=== PATIENT | male | born 1980 | race Caucasian/White ===

== ENCOUNTER 2017-06-07 04:28 | Emergency (ER) | payer BC ==
[2017-06-07] MEDS ORDERED: IBUPROFEN 600 MG TAB PO STA (05:33)
--- NOTE | 2017-06-07 05:46 | ED ---
Fever HPI - General Source: patient Mode of arrival: ambulatory Limitations: no limitations - History of Present Illness MD Complaint: fever -: hour(s) Temperature Source: other Context: sick contacts Associated Symptoms: chills, cough Treatments Prior to Arrival: Acetaminophen <Chad Villegas - Last Filed: 06/07/17 06:46> <Patel Cantor - Last Filed: 06/07/17 07:32> - General Chief Complaint: Fever Stated Complaint: fever Time Seen by Provider: 06/07/17 04:36 - History of Present Illness Initial Comments: This patient is a 36-year-old man who presents to be evaluated for fever and the patient states that he woke up tonight feeling chills. He tried taking a hot shower and so was feeling cold rate he injects temperature and it was 105. Patient does acknowledge having about 2 days of nonproductive cough and a little bit of postnasal drip. Patient denying other symptoms of infection, see the review of systems. He did take some Tylenol, and when he rechecked his temperature was 102. (Chad Villegas) - Related Data Home Medications Medication Instructions Recorded Confirmed Acetaminophen [Tylenol Extra 1,000 mg PO BID PRN 06/07/17 06/07/17 Strength] Previous Rx's Medication Instructions Recorded Azithromycin [Zithromax Z-pack] 250 mg PO DIRECTED #6 tab 06/07/17 Allergies Allergy/AdvReac Type Severity Reaction Status Date / Time No Known Allergies Allergy Verified 06/07/17 07:08 Review of Systems ROS Other: All systems not noted in ROS Statement are negative. Constitutional: Reports: fever, chills. Denies: weakness ENT: Reports: congestion. Denies: ear pain Respiratory: Reports: cough. Denies: dyspnea, wheezes Cardiovascular: Denies: chest pain, syncope Gastrointestinal: Denies: abdominal pain, vomiting, diarrhea Genitourinary: Denies: dysuria, hematuria Skin: Denies: rash Neurological: Denies: headache, weakness, numbness <Chad Villegas - Last Filed: 06/07/17 06:46> ROS Other: All systems not noted in ROS Statement are negative. <Patel Cantor - Last Filed: 06/07/17 07:32> ROS Statement: Those systems with pertinent positive or pertinent negative responses have been documented in the HPI. Past Medical History Past Medical History: No Reported History History of Any Multi-Drug Resistant Organisms: None Reported Past Surgical History: No Surgical Hx Reported Past Psychological History: No Psychological Hx Reported Smoking Status: Current every day smoker Past Alcohol Use History: None Reported Past Drug Use History: None Reported <NellyChad - Last Filed: 06/07/17 06:46> General Exam Limitations: no limitations General appearance: alert, in no apparent distress Head exam: Present: atraumatic, normocephalic Eye exam: Present: normal appearance. Absent: scleral icterus, conjunctival injection ENT exam: Present: normal oropharynx, mucous membranes moist Neck exam: Present: normal inspection, full ROM. Absent: lymphadenopathy Respiratory exam: Present: normal lung sounds bilaterally. Absent: respiratory distress, wheezes, rales, rhonchi Cardiovascular Exam: Present: regular rate, normal rhythm, normal heart sounds. Absent: systolic murmur, diastolic murmur, rubs, gallop GI/Abdominal exam: Present: soft. Absent: distended, tenderness, guarding, rebound, rigid, mass Extremities exam: Present: normal inspection, normal capillary refill. Absent: pedal edema, calf tenderness Neurological exam: Present: alert Psychiatric exam: Present: normal affect Skin exam: Present: warm, normal color, cyanosis, diaphoretic, erythema. Absent : intact, rash <Chad Villegas - Last Filed: 06/07/17 06:46> Medical Decision Making <Chad Villegas - Last Filed: 06/07/17 06:46> - Radiology Data Radiology results: image reviewed (X-ray does show right middle lobe infiltrate) <Patel Cantor - Last Filed: 06/07/17 07:32> - Medical Decision Making Patient reexamined by myself, Dr. Cantor. Patient resting comfortably in bed. Patient denies dyspnea. Patient states symptoms just started the past day or so. Patient does state he has had a mild cough. Patient feels good at this time and is comfortable with discharge home. Patient updated on results and need for follow-up. (Patel Cantor) - Lab Data Lab Results 06/07/17 Range/Units 05:40 Urine Color Colorless Urine Appearance Clear (Clear) Urine pH 6.0 (5.0-8.0) Ur Specific [place] 1.002 (1.001-1.035) Urine Protein Negative (Negative) Urine Glucose (UA) Negative (Negative) Urine Ketones Negative (Negative) Urine Blood Negative (Negative) Urine Nitrite Negative (Negative) Urine Bilirubin Negative (Negative) Urine Urobilinogen <2.0 (<2.0) mg/dL Ur Leukocyte Esterase Negative (Negative) Disposition <Chad Villegas - Last Filed: 06/07/17 06:46> Time of Disposition: 07:31 <Patel Cantor - Last Filed: 06/07/17 07:32> Clinical Impression: Right middle lobe pneumonia Disposition: HOME SELF-CARE Condition: Stable Instructions: Fever in Adults (ED), Community Acquired Pneumonia (ED) Additional Instructions: Please follow-up with primary care physician in the next couple days for recheck. Return for difficulty in breathing, uncontrolled fevers, worsening symptoms or other concerns. [id number] Tylenol or Motrin as needed for fever. Prescriptions: Azithromycin [Zithromax Z-pack] 250 mg PO DIRECTED #6 tab Referrals: Adrián Butler MD [STAFF PHYSICIAN] - 1-2 days Emelia Farfan DO [REFERRING] - 1-2 days
[2017-06-07 05:50] LABS: Appearance,Urine Clear (Clear); Bilirubin,Urine Negative (Negative); Glucose,Urine (UA) Negative (Negative); Ketones,Urine Negative (Negative); Leukocyte Esterase,Urine Negative (Negative); Nitrite,Urine Negative (Negative); Protein,Urine Negative (Negative); Specific Gravity,Urine 1.002 (1.001-1.035); UA Billing (MACRO vs. MICRO) CHEM; Urobilinogen,Urine <2.0 mg/dL (<2.0)
[2017-06-07 06:39] VITALS: RESP 16
--- NOTE | 2017-06-07 07:13 | XR ---
INDICATION: Chest pain COMPARISON: None. FINDINGS: PA and lateral views of the chest are obtained. The cardiomediastinal silhouette is within normal limits. There is airspace opacity in the right middle lobe concerning for pneumonia. No pleural effusion or pneumothorax. Bony elements are within normal limits. IMPRESSION: Right middle lobe pneumonia.
[2017-06-07] MEDS ORDERED: AZITHROMYCIN 500 MG TAB PO STA (07:31)
[2017-06-07 07:59] VITALS: BP 115/70; PULSE 87; TEMP 97.9
== END 2017-06-07 08:05 | disposition home or self-care (01) ==
LOC: EC 04:28
DX: J18.9 Pneumonia, unspecified organism (principal); F17.200 Nicotine dependence, unspecified, uncomplicated
CPT/HCPCS: 71020; 81003; 99283

== ENCOUNTER 2017-06-09 21:26 | Emergency (ER) | payer BC, OTHER ==
[2017-06-09] MEDS ORDERED: KETOROLAC 30 MG/ML 1 ML VIAL IM STA (22:01)
--- NOTE | 2017-06-09 22:04 | ED ---
Lower Extremity Injury HPI - General Chief Complaint: Extremity Injury, Lower Stated Complaint: ankle injury Source: patient Mode of arrival: ambulatory Limitations: no limitations - History of Present Illness Initial Comments: Patient is a 36-year-old male who presents for evaluation for right ankle/foot pain and swelling. Past medical history as below. Patient stated that he was helping a friend move today. He jumped out of the truck and landed on his right foot with a half on the curb and half on the street. He stated that it twisted inward. Was able to ambulate on it though he states that the pain was quite significant. Noticed some swelling to the right lateral aspect of his foot so decided to come in for evaluation. Patient was recently seen here and diagnosed with right middle lobe pneumonia. He started antibiotics yesterday which she's been compliant with. He states that he actually feels much improved. Denies any fevers at home. No shortness of breath or cough. Also denies URI symptoms, chest pain, nausea, vomiting, diarrhea, pain or burning with urination. Patient specifically stated that he would not have come in if it wasn't for the swelling to his right foot. He states that the antibiotics are helping him and he feels much improved from the fourth. - Related Data Home Medications Medication Instructions Recorded Confirmed Azithromycin [Zithromax Z-pack] See Taper PO DAILY 06/09/17 06/09/17 Allergies Allergy/AdvReac Type Severity Reaction Status Date / Time No Known Allergies Allergy Verified 06/09/17 21:30 Review of Systems ROS Statement: Those systems with pertinent positive or pertinent negative responses have been documented in the HPI. ROS Other: All systems not noted in ROS Statement are negative. Past Medical History Past Medical History: No Reported History History of Any Multi-Drug Resistant Organisms: None Reported Past Surgical History: No Surgical Hx Reported Past Psychological History: No Psychological Hx Reported Smoking Status: Current every day smoker Past Alcohol Use History: None Reported Past Drug Use History: None Reported General Exam Limitations: no limitations General appearance: alert, in no apparent distress, other (Nontoxic appearing) Head exam: Present: atraumatic, normocephalic, normal inspection Eye exam: Present: normal appearance, PERRL, EOMI. Absent: scleral icterus, conjunctival injection, periorbital swelling ENT exam: Present: normal exam, mucous membranes moist Neck exam: Present: normal inspection. Absent: tenderness, meningismus, lymphadenopathy Respiratory exam: Present: normal lung sounds bilaterally, other (Clear bilaterally without wheezes rales or rhonchi. No hypoxia. Respiratory rate 20. No conversational dyspnea.). Absent: respiratory distress, wheezes, rales , rhonchi, stridor Cardiovascular Exam: Present: regular rate, normal rhythm, normal heart sounds. Absent: systolic murmur, diastolic murmur, rubs, gallop, clicks GI/Abdominal exam: Present: soft, normal bowel sounds. Absent: distended, tenderness, guarding, rebound, rigid Extremities exam: Present: normal inspection, full ROM, normal capillary refill , other (Soft tissue swelling to the lateral aspect of his right foot/right ankle. No pain with palpation of the posterior distal fibula or tibia. Pain with palpation of the fifth metatarsal. Distal pulses are intact. Sensation intact.). Absent: tenderness, pedal edema, joint swelling, calf tenderness Back exam: Present: normal inspection Neurological exam: Present: alert, oriented X3, CN II-XII intact Psychiatric exam: Present: normal affect, normal mood Skin exam: Present: warm, dry, intact, normal color. Absent: rash Course Vital Signs 06/09/17 06/09/17 21:27 23:48 Temperature 100.8 F H 98 F Pulse Rate 77 69 Respiratory 20 16 Rate Blood Pressure 128/78 156/67 O2 Sat by Pulse 98 99 Oximetry Procedures - Orthopedic Splinting/Casting Injury #1 Side: right Upper Extremity Immobilizer: posterior splint Lower Extremity Injury Location: ankle Lower Extremity Immobilizer: stirrup splint Additional Comments: Neurovascularly intact before and after the procedure. Medical Decision Making - Medical Decision Making Patient is a 36-year-old male who presents for evaluation for right ankle pain and swelling. Twisted it while jumping out of a truck today. Did not take any Tylenol or Motrin at home for it. We'll order plain films of the right foot and ankle. Noted to have a temperature of 100.8. I repeated the temperature myself and it was 100.9. He states that he feels well. Does not have any shortness of breath or cough. Believes that the antibiotics are helping and he would not have come in if it were not for his right ankle pain and swelling. Gave the patient option of further workup but states that he just wants to be evaluated for his right ankle. We'll order 30 mg IM Toradol and plain films. 2335: Reviewed plain films. No acute fracture or dislocation per radiology. Discussed with the patient. Had significant pain with ambulation. At this time recommended splinting and follow-up with orthopedics. Patient agreed. Placed in a posterior mold with stirrup. Neurovascularly intact before and after splinting. We'll make the patient nonweightbearing until reevaluated by orthopedics. He does not have an orthopedic surgeon. Provided Dr. Ku per call schedule to follow-up. Elevate the right lower extremity. Tylenol and Motrin as needed for pain. We'll purchase crutches. Was also noted that the patient had a mild fever on evaluation. Patient is currently being treated for pneumonia. He cites significant symptomatic improvement. He's been on antiemetics for less than 48 hours. Since he is improved did not seek further workup. He has follow-up this week. Provided a work note as the patient is frequently on his feet. Discussed specific signs and symptoms on when to return to the emergency department for further evaluation. Comfortable with discharge home and will follow-up this week with both his primary care physician and orthopedics. Disposition Clinical Impression: Right ankle injury, Pneumonia Disposition: HOME SELF-CARE Condition: Good Instructions: Ankle Sprain (ED) Additional Instructions: Non-weight bearing right lower extremity until cleared by orthopedics Referrals: None,Stated [Primary Care Provider] - 1-2 days Cal Ku MD [STAFF PHYSICIAN] - 1-2 days
--- NOTE | 2017-06-09 23:05 | XR ---
EXAM: XR Right Ankle Complete, 3 or More Views CLINICAL HISTORY: Reason: Pain TECHNIQUE: Frontal, lateral and oblique views of the right ankle. COMPARISON: No relevant prior studies available. FINDINGS: Bones/joints: Unremarkable. No acute fracture. No dislocation. Soft tissues: Unremarkable. IMPRESSION: Normal right ankle x-rays.
--- NOTE | 2017-06-09 23:06 | XR ---
EXAM: XR Right Foot Complete, 3 or More Views CLINICAL HISTORY: Reason: Pain TECHNIQUE: Frontal, lateral and oblique views of the right foot. COMPARISON: No relevant prior studies available. FINDINGS: Bones/joints: Unremarkable. No acute fracture. No dislocation. Soft tissues: Unremarkable. No radiopaque foreign body. IMPRESSION: Normal right foot x-rays.
[2017-06-09 23:49] VITALS: BP 156/67; PULSE 69; RESP 16; TEMP 98
== END 2017-06-09 23:48 | disposition home or self-care (01) ==
LOC: EC 21:26
DX: S99.911A Unspecified injury of right ankle, initial encounter (principal); J18.9 Pneumonia, unspecified organism; F17.200 Nicotine dependence, unspecified, uncomplicated; X50.1XXA Overexertion from prolonged static or awkward postures, initial encounter; Y93.39 Activity, other involving climbing, rappelling and jumping off; Y92.89 Other specified places as the place of occurrence of the external cause
CPT/HCPCS: 73610; 73630; 99283; 29515; 96372; J1885

== ENCOUNTER → 2017-08-20 | Outpatient (CLI) | payer OTHER ==
--- NOTE | 2017-08-20 11:01 | XR ---
EXAMINATION TYPE: XR hand complete RT DATE OF EXAM: 08/20/2017 CLINICAL HISTORY: Right hand injury TECHNIQUE: Frontal, lateral and oblique images of the right hand are obtained. COMPARISON: None. FINDINGS: There are comminuted nondisplaced fractures of the distal travis of the third and fourth dis kash phalanges with overlying soft tissue swelling and volar laceration of the third digit digit near the middle. No radiopaque foreign body is appreciated. No additional fractures are present. IMPRESSION: Comminuted, nondisplaced, nonintra-articular fractures of the distal travis of the third a nd fourth phalanges with no radiopaque foreign body associated soft tissue swelling.
== END | disposition home or self-care (01) ==
LOC: RADXRMAIN 10:39
PROVIDERS: ATTEND Emergency Medicine
DX: S62.662A Nondisplaced fracture of distal phalanx of right middle finger, initial encounter for closed fracture (principal); S62.664A Nondisplaced fracture of distal phalanx of right ring finger, initial encounter for closed fracture

== ENCOUNTER 2017-08-21 04:58 | Emergency (ER) | payer OTHER ==
[2017-08-21] MEDS ORDERED: MORPHINE SULFATE 10 MG/ML SYRINGE IM STA (05:33)
[2017-08-21] MEDS ORDERED: ONDANSETRON ODT 4 MG TAB PO STA (05:33)
[2017-08-21] MEDS ORDERED: ACETAMINOPHEN TAB 500 MG TAB PO STA (05:34)
--- NOTE | 2017-08-21 06:07 | XR ---
EXAM: XR Right Hand Complete, 3 or More Views CLINICAL HISTORY: Reason: Pain TECHNIQUE: Frontal, lateral and oblique views of the right hand. COMPARISON: Right hand radiographs 08/20/2017 FINDINGS: Bones/joints: Comminuted fracture involves terminal tuft of third distal phalanx. There is also comminuted fracture involving the shaft and terminal tuft of fourth distal phalanx. Fracture fragments are in near anatomic alignment without any significant displacement. Soft tissues: No radiopaque foreign bodies identified. Other findings: No significant change since prior examination of 08/20/2017. IMPRESSION: Comminuted fractures involving third and fourth distal phalanges, unchanged since 08/20/2017.
--- NOTE | 2017-08-21 06:50 | ED ---
Upper Extremity HPI - General Chief Complaint: Extremity Injury, Upper Stated Complaint: right hand pain-revisit Time Seen by Provider: 08/21/17 05:16 Source: patient Mode of arrival: ambulatory Limitations: no limitations - History of Present Illness Initial Comments: 6 years old male hurt his right hand at work yesterday, injury happened around 8 :30 in the morning at work his hand got caught between a steel plates. He denies any other injury. He did go to a urgent care for walk-in clinic today. His laceration and gave him some Motrin he saying that monitoring his Motrin is not helping him at this point in the also given pain no murmurs she points to protect his distal phalanx review of system is otherwise unremarkable - Related Data Home Medications Medication Instructions Recorded Confirmed Azithromycin [Zithromax Z-pack] See Taper PO DAILY 06/09/17 06/09/17 Previous Rx's Medication Instructions Recorded Acetaminophen-Codeine 300-30mg 2 tab PO Q6H PRN #21 tablet 08/21/17 [Tylenol #3] Allergies Allergy/AdvReac Type Severity Reaction Status Date / Time No Known Allergies Allergy Verified 08/21/17 05:11 Review of Systems ROS Statement: Those systems with pertinent positive or pertinent negative responses have been documented in the HPI. ROS Other: All systems not noted in ROS Statement are negative. Past Medical History Past Medical History: No Reported History History of Any Multi-Drug Resistant Organisms: None Reported Past Surgical History: No Surgical Hx Reported Past Psychological History: No Psychological Hx Reported Smoking Status: Former smoker Past Alcohol Use History: None Reported Past Drug Use History: None Reported General Exam - General Exam Comments Initial Comments: General: The patient is awake and alert, in mild distress because of the pain Skin: Skin is warm and dry and no rashes or lesions are noted. ENT laceration repaired at a walk-in clinic now he has a dressing on it Eye: Pupils are equal, round and reactive to light, extra-ocular movements are intact; there is normal conjunctiva bilaterally. Ears, nose, mouth and throat: There are moist mucous membranes and no oral lesions. Neck: The neck is supple, there is no tenderness or JVD. Cardiovascular: There is a regular rate and rhythm. No murmur, rub or gallop is appreciated. Respiratory: To auscultation bilateral, no wheezing no rhonchi no distress respiratory newman noticed Gastrointestinal: Soft, non-distended, non-tender abdomen without masses or organomegaly noted. There is no rebound or guarding present. Bowel sounds are unremarkable. Back: There is no tenderness to palpation in the midline. There is no obvious deformity. Musculoskeletal: Normal ROM, no tenderness, There is no pedal edema. There is no calf tenderness or swelling. No cords were appreciated. Neurological: CN II-XII intact, Cranial nerves III through XII are intact. There are no obvious motor or sensory deficits. Coordination appears grossly intact. Speech is normal. Psychiatric: Cooperative, appropriate mood & affect, normal judgment. Limitations: no limitations Course Vital Signs 08/21/17 05:06 Temperature 97.4 F L Pulse Rate 68 Respiratory 16 Rate Blood Pressure 133/84 O2 Sat by Pulse 98 Oximetry Report reviewed, noticed comminuted fracture of the distal phalanx of the fingers, he be referred to Dr. Blanco, over applied aluminum splint to protect the distal phalanx Disposition Clinical Impression: Finger fracture, right Disposition: HOME SELF-CARE Condition: Good Instructions: Hand Fracture (ED) Prescriptions: Acetaminophen-Codeine 300-30mg [Tylenol #3] 2 tab PO Q6H PRN #21 tablet PRN Reason: Pain Referrals: None,Stated [Primary Care Provider] - 1-2 days Brian Blanco DO [Doctor of Osteopathic Medicine] - 1-2 days
[2017-08-21 07:00] VITALS: BP 127/75; PULSE 63; RESP 18; TEMP 98
== END 2017-08-21 06:58 | disposition home or self-care (01) ==
LOC: EC 04:58
DX: S62.632D Displaced fracture of distal phalanx of right middle finger, subsequent encounter for fracture with routine healing (principal); S62.634D Displaced fracture of distal phalanx of right ring finger, subsequent encounter for fracture with routine healing; Z87.891 Personal history of nicotine dependence; W23.0XXD Caught, crushed, jammed, or pinched between moving objects, subsequent encounter; Y92.69 Other specified industrial and construction area as the place of occurrence of the external cause
CPT/HCPCS: 99283 ×2; 96372 ×2; 73130; J2270

== ENCOUNTER 2017-09-09 08:53 | Observation (INO) | payer BC, OTHER ==
[2017-09-09] MEDS ORDERED: RX INFO: IV CONTRAST WAS GIVEN 1 EACH MISC MISCELLANE PRN (10:09)
[2017-09-09] MEDS ORDERED: IOHEXOL 350 MG/ML 25 ML BOTTLE (ORAL USE) PO PRN (10:09)
[2017-09-09] MEDS ORDERED: ONDANSETRON 4 MG/2 ML VIAL IVP STA (10:09)
[2017-09-09] MEDS ORDERED: PIPERACILLIN-TAZOBACTAM 3.375 GM in DEXTROSE/WATER 1 50ML.BAG IVPB STA (10:09)
[2017-09-09] MEDS ORDERED: MORPHINE SULFATE 2 MG/ML SYRINGE IVP STA (10:09)
[2017-09-09 10:54] LABS: Basophils # (A) 0.1 k/uL (0-0.2); Basophils % (A) 1 %; CHCM 33.5; Eosinophils # (A) 0.2 k/uL (0-0.7); Eosinophils % (A) 1 %; HDW 2.17; HGB 17.1 gm/dL (13.0-17.5); Luc # (Auto) 0.14; Luc % (Auto) 1; Lymphocytes # (A) 1.1 k/uL (1.0-4.8); Lymphocytes % (A) 6 %; MCH 30.2 pg (25.0-35.0); MCHC 33.6 g/dL (31.0-37.0); MCV 90.1 fL (80.0-100.0); Mean Platelet Volume 7.1; Monocytes % (A) 5 %; Neutrophils # (A) 16.8 k/uL (1.3-7.7); Neutrophils % (A) 87 %; RBC 5.66 m/uL (4.30-5.90); RDW 13.4 % (11.5-15.5); WBC 19.4 k/uL (3.8-10.6); WBC (Perox) 19.51
[2017-09-09 11:06] LABS: INR 1.1 (<1.2); Partial Thromboplastin Time 27.3 sec (22.0-30.0); Prothrombin Time 10.9 sec (9.0-12.0)
[2017-09-09 11:15] LABS: ALT 23 U/L (21-72); AST 19 U/L (17-59); Alkaline Phosphatase 84 U/L (38-126); Amylase 33 U/L (30-110); Anion Gap 9 mmol/L; Blood Urea Nitrogen 8 mg/dL (9-20); Calcium 9.7 mg/dL (8.4-10.2); Carbon Dioxide 27 mmol/L (22-30); Chloride 103 mmol/L (98-107); Glucose 122 mg/dL (74-99); Non-African American GFR(MDRD) >60 (>60 ml/min/1.73 sqM); Potassium 4.4 mmol/L (3.5-5.1); Sodium 139 mmol/L (137-145); Total Bilirubin 0.9 mg/dL (0.2-1.3); Total Protein 7.6 g/dL (6.3-8.2)
[2017-09-09 12:20] LABS: Appearance,Urine Clear (Clear); Bilirubin,Urine Negative (Negative); Glucose,Urine (UA) Negative (Negative); Ketones,Urine Negative (Negative); Leukocyte Esterase,Urine Negative (Negative); Nitrite,Urine Negative (Negative); PH, Urine 6.5 (5.0-8.0); Protein,Urine Negative (Negative); Specific Gravity,Urine 1.001 (1.001-1.035); UA Billing (MACRO vs. MICRO) CHEM; Urobilinogen,Urine <2.0 mg/dL (<2.0)
--- NOTE | 2017-09-09 12:26 | CT ---
EXAMINATION TYPE: CT abdomen pelvis w con DATE OF EXAM: 09/09/2017 COMPARISON: NONE HISTORY: Right lower quadrant pain CT DLP: 1064 mGycm Automated exposure control for dose reduction was used. TECHNIQUE: Helical acquisition of images from the lung bases through the pelvis have been completed. CONTRAST: Performed with Oral Contrast and with IV Contrast, patient injected with 100 mL of Omnipaque 300. FINDINGS: LUNG BASES: No significant abnormality is appreciated. AORTA: No significant abnormality is appreciated. LIVER/GB: No significant abnormality is appreciated. PANCREAS: No significant abnormality is seen. SPLEEN: No significant abnormality is seen. ADRENALS: No significant abnormality is seen. KIDNEYS: No significant abnormality is seen. REPRODUCTIVE ORGANS: No significant abnormality is seen BOWEL: Some small bowel folds appear somewhat thickened. Right lower quadrant shows a distended appe ndix with fluid present bilaterally as well as some surrounding inflammatory change. No evident absce ss. FREE AIR: No Free Air visible. ASCITES: None visible. PELVIC ADENOPATHY: None visualized. RETROPERITONEAL ADENOPATHY: No Retroperitoneal Adenopathy visible. URINARY BLADDER: No significant abnormality is seen. OSSEOUS STRUCTURES: No significant abnormality is seen. IMPRESSION: FINDINGS COMPATIBLE WITH APPENDICITIS.
[2017-09-09] MEDS ORDERED: ACETAMINOPHEN TAB 500 MG TAB PO STA (12:50)
[2017-09-09] MEDS ORDERED: NALOXONE 0.4 MG/ML 1 ML VIAL IV PRN ×2 (13:03→15:31)
[2017-09-09] MEDS ORDERED: ONDANSETRON 4 MG/2 ML VIAL IVP PRN (13:03)
--- NOTE | 2017-09-09 13:03 | ED ---
Abdominal Pain HPI - General Chief Complaint: Abdominal Pain Stated Complaint: ABDOMINAL PAIN Time Seen by Provider: 09/09/17 10:07 Source: patient Mode of arrival: ambulatory Limitations: no limitations - History of Present Illness Initial Comments: Patient complains of abdominal pain. It has been there for 3 days. The pain is getting worse. Patient was unable to eat today. Pain is in the right lower quadrant. It does not radiate anywhere. It is worse when he is up walking around. He has taken no medication this. He has nausea but no vomiting. He has no chest pain or back pain. He has no headache. He denies any injuries. He has no weakness or trouble walking. - Related Data Home Medications Medication Instructions Recorded Confirmed No Known Home Medications [No 09/09/17 09/09/17 Known Home Medications] Allergies Allergy/AdvReac Type Severity Reaction Status Date / Time No Known Allergies Allergy Verified 09/09/17 09:42 Review of Systems ROS Statement: Those systems with pertinent positive or pertinent negative responses have been documented in the HPI. ROS Other: All systems not noted in ROS Statement are negative. Past Medical History Past Medical History: No Reported History History of Any Multi-Drug Resistant Organisms: None Reported Past Surgical History: No Surgical Hx Reported Past Psychological History: No Psychological Hx Reported Smoking Status: Former smoker Past Alcohol Use History: None Reported Past Drug Use History: None Reported General Exam Limitations: no limitations General appearance: alert, in no apparent distress Head exam: Present: atraumatic, normocephalic, normal inspection Eye exam: Present: normal appearance, PERRL, EOMI. Absent: scleral icterus, conjunctival injection, periorbital swelling ENT exam: Present: normal exam, mucous membranes moist Neck exam: Present: normal inspection. Absent: tenderness, meningismus, lymphadenopathy Respiratory exam: Present: normal lung sounds bilaterally. Absent: respiratory distress, wheezes, rales, rhonchi, stridor Cardiovascular Exam: Present: regular rate, normal rhythm, normal heart sounds. Absent: systolic murmur, diastolic murmur, rubs, gallop, clicks GI/Abdominal exam: Present: soft, tenderness, normal bowel sounds. Absent: distended, guarding, rebound, rigid Extremities exam: Present: normal inspection, full ROM, normal capillary refill. Absent: tenderness, pedal edema, joint swelling, calf tenderness Back exam: Present: normal inspection Neurological exam: Present: alert, oriented X3, CN II-XII intact Psychiatric exam: Present: normal affect, normal mood Skin exam: Present: warm, dry, intact, normal color. Absent: rash Course Vital Signs 09/09/17 09/09/17 09:28 12:43 Temperature 99.3 F 101.8 F H Pulse Rate 85 75 Respiratory 16 18 Rate Blood Pressure 125/67 125/67 O2 Sat by Pulse 98 97 Oximetry Medical Decision Making - Medical Decision Making Patient presents with abdominal pain. He has right lower quadrant tenderness. I made him nothing by mouth. CT reveals appendicitis. I ordered IV Zosyn. Patient will be admitted to surgery. - Lab Data Result diagrams: 09/09/17 10:40 09/09/17 10:40 Lab Results 09/09/17 09/09/17 09/09/17 Range/Units 10:40 10:40 10:40 WBC 19.4 H (3.8-10.6) k/uL RBC 5.66 (4.30-5.90) m/uL Hgb 17.1 (13.0-17.5) gm/dL Hct 51.0 (39.0-53.0) % MCV 90.1 (80.0-100.0) fL MCH 30.2 (25.0-35.0) pg MCHC 33.6 (31.0-37.0) g/dL RDW 13.4 (11.5-15.5) % Plt Count 301 (150-450) k/uL Neutrophils % 87 % Lymphocytes % 6 % Monocytes % 5 % Eosinophils % 1 % Basophils % 1 % Neutrophils # 16.8 H (1.3-7.7) k/uL Lymphocytes # 1.1 (1.0-4.8) k/uL Monocytes # 1.0 (0-1.0) k/uL Eosinophils # 0.2 (0-0.7) k/uL Basophils # 0.1 (0-0.2) k/uL PT 10.9 (9.0-12.0) sec INR 1.1 (<1.2) APTT 27.3 (22.0-30.0) sec Sodium 139 (137-145) mmol/L Potassium 4.4 (3.5-5.1) mmol/L Chloride 103 (98-107) mmol/L Carbon Dioxide 27 (22-30) mmol/L Anion Gap 9 mmol/L BUN 8 L (9-20) mg/dL Creatinine 0.89 (0.66-1.25) mg/dL Est GFR (MDRD) Af Amer >60 (>60 ml/min/1.73 sqM) Est GFR (MDRD) Non-Af >60 (>60 ml/min/1.73 sqM) Glucose 122 H (74-99) mg/dL Calcium 9.7 (8.4-10.2) mg/dL Total Bilirubin 0.9 (0.2-1.3) mg/dL AST 19 (17-59) U/L ALT 23 (21-72) U/L Alkaline Phosphatase 84 (38-126) U/L Total Protein 7.6 (6.3-8.2) g/dL Albumin 4.7 (3.5-5.0) g/dL Amylase 33 (30-110) U/L Lipase 61 (23-300) U/L Urine Color Urine Appearance (Clear) Urine pH (5.0-8.0) Ur Specific [place] (1.001-1.035) Urine Protein (Negative) Urine Glucose (UA) (Negative) Urine Ketones (Negative) Urine Blood (Negative) Urine Nitrite (Negative) Urine Bilirubin (Negative) Urine Urobilinogen (<2.0) mg/dL Ur Leukocyte Esterase (Negative) 09/09/17 Range/Units 12:05 WBC (3.8-10.6) k/uL RBC (4.30-5.90) m/uL Hgb (13.0-17.5) gm/dL Hct (39.0-53.0) % MCV (80.0-100.0) fL MCH (25.0-35.0) pg MCHC (31.0-37.0) g/dL RDW (11.5-15.5) % Plt Count (150-450) k/uL Neutrophils % % Lymphocytes % % Monocytes % % Eosinophils % % Basophils % % Neutrophils # (1.3-7.7) k/uL Lymphocytes # (1.0-4.8) k/uL Monocytes # (0-1.0) k/uL Eosinophils # (0-0.7) k/uL Basophils # (0-0.2) k/uL PT (9.0-12.0) sec INR (<1.2) APTT (22.0-30.0) sec Sodium (137-145) mmol/L Potassium (3.5-5.1) mmol/L Chloride (98-107) mmol/L Carbon Dioxide (22-30) mmol/L Anion Gap mmol/L BUN (9-20) mg/dL Creatinine (0.66-1.25) mg/dL Est GFR (MDRD) Af Amer (>60 ml/min/1.73 sqM) Est GFR (MDRD) Non-Af (>60 ml/min/1.73 sqM) Glucose (74-99) mg/dL Calcium (8.4-10.2) mg/dL Total Bilirubin (0.2-1.3) mg/dL AST (17-59) U/L ALT (21-72) U/L Alkaline Phosphatase (38-126) U/L Total Protein (6.3-8.2) g/dL Albumin (3.5-5.0) g/dL Amylase (30-110) U/L Lipase (23-300) U/L Urine Color Colorless Urine Appearance Clear (Clear) Urine pH 6.5 (5.0-8.0) Ur Specific [place] 1.001 (1.001-1.035) Urine Protein Negative (Negative) Urine Glucose (UA) Negative (Negative) Urine Ketones Negative (Negative) Urine Blood Negative (Negative) Urine Nitrite Negative (Negative) Urine Bilirubin Negative (Negative) Urine Urobilinogen <2.0 (<2.0) mg/dL Ur Leukocyte Esterase Negative (Negative) Disposition Clinical Impression: Appendicitis Disposition: ADMITTED IP TO THIS [facility] Condition: Fair Referrals: None,Stated [Primary Care Provider] - 1-2 days
[2017-09-09] MEDS ORDERED: SODIUM CHLORIDE 0.9% 1,000 ML IV ONE ×2 (14:25)
[2017-09-09 14:32] VITALS: RESP 16
[2017-09-09] MEDS ORDERED: HEPARIN SODIUM,PORCINE 5,000 UNIT/ML 1 ML VIAL SQ ONE (14:53)
[2017-09-09] MEDS ORDERED: NEOSTIGMINE 1 MG/ML 10 ML VIAL ONE (14:59)
[2017-09-09] MEDS ORDERED: MIDAZOLAM 2 MG/2 ML VIAL ONE (14:59)
[2017-09-09] MEDS ORDERED: SUCCINYLCHOLINE CHLORIDE 100 MG/5 ML SYR IV ONE (14:59)
[2017-09-09] MEDS ORDERED: GLYCOPYRROLATE 0.2 MG/ML 2 ML VIAL ONE (14:59)
[2017-09-09] MEDS ORDERED: fentaNYL (PF) 50 MCG/ML 2 ML AMP ONE (14:59)
[2017-09-09] MEDS ORDERED: LIDOCAINE 1% INJ 10MG/ML (20 ML MDV) ONE (14:59)
[2017-09-09] MEDS ORDERED: PROPOFOL 10 MG/ML 20 ML VIAL IV ONE (14:59)
[2017-09-09] MEDS ORDERED: BUPIVACAINE-EPI 0.5%-1:200,000 10 ML VIAL SQ ONE ×3 (15:13→15:15)
[2017-09-09] MEDS ORDERED: LACTATED RINGERS 1,000 ML IV ONE ×2 (15:31→16:32)
[2017-09-09] MEDS ORDERED: HYDROcodone/APAP 5-325MG 1 EACH TAB PO PRN (15:31)
--- NOTE | 2017-09-09 15:34 | P.OP ---
Date of Procedure: 09/09/17 Preoperative Diagnosis: Appendicitis Postoperative Diagnosis: Acute appendicitis Procedure(s) Performed: Laparoscopic appendectomy Anesthesia: AYO Surgeon: Mono Bryant Estimated Blood Loss (ml): 5 Pathology: other (Appendix) Condition: stable Disposition: PACU Description of Procedure: HThe patient's placed on the operating table in the supine position. The patient received general anesthesia. The abdomen was prepped and draped in the usual sterile fashion. The skin was anesthetized 1% local Xylocaine at the trocar sites. Using an 11 blade the skin was incised at the umbilicus. The umbilicus was grasped with a Dora clamp and then a Veress needle was placed into the peritoneal cavity. Position of the Veress needle was confirmed with positive drop test. After adequate insufflation a 5 mm trocar was placed into the peritoneal cavity. The abdomen was further insufflated. And then the laparoscope was placed in the peritoneal cavity. Next a 5 mm trocar was placed in the midline suprapubic position. And then a 10 mm trocar was placed in the midline epigastric position. The patient was rotated with the right side up and in Trendelenburg. The appendix was visualized. The appendix appeared to be inflamed. The appendix was grasped and then using the Harmonic scissors the mesoappendix was divided. A PDS Endoloop was then placed around the base of the appendix. And then the appendix was divided using Harmonic scissors. The appendix was placed into an Endo Catch and brought out through the 10 mm trocar site. The abdomen was irrigated. There is no bleeding seen. The trochars withdrawn. The skin was closed interrupted 3-0 Monocryl suture. Dermabond dressing was applied. Patient was sent to recovery room in stable condition.
--- NOTE | 2017-09-09 15:35 | P.GSHP ---
History of Present Illness H&P Date: 09/09/17 Chief Complaint: Acute appendicitis This is a 36-year-old male with a 48 hour history of abdominal pain. Patient had significant right lower quadrant pain last night. He came the emergency room is found have acute appendicitis on CAT scan. Past Medical History Past Medical History: No Reported History History of Any Multi-Drug Resistant Organisms: None Reported Past Surgical History: No Surgical Hx Reported Past Psychological History: No Psychological Hx Reported Smoking Status: Former smoker Past Alcohol Use History: None Reported Past Drug Use History: None Reported Medications and Allergies Home Medications Medication Instructions Recorded Confirmed Type No Known Home Medications [No 09/09/17 09/09/17 History Known Home Medications] Allergies Allergy/AdvReac Type Severity Reaction Status Date / Time No Known Allergies Allergy Verified 09/09/17 09:42 Surgical - Exam Vital Signs Temp Pulse Resp BP Pulse Ox 99.3 F 85 16 125/67 98 09/09/17 09:28 09/09/17 09:28 09/09/17 09:28 09/09/17 09:28 09/09/17 09:28 - General well developed, no distress - Eyes PERRL - ENT normal pinna - Neck no masses - Respiratory normal expansion - Cardiovascular Rhythm: regular - Abdomen Abdomen: soft, non tender Results - Labs 09/09/17 10:40 09/09/17 10:40 Abnormal Lab Results - Last 24 Hours (Table) 09/09/17 09/09/17 Range/Units 10:40 10:40 WBC 19.4 H (3.8-10.6) k/uL Neutrophils # 16.8 H (1.3-7.7) k/uL BUN 8 L (9-20) mg/dL Glucose 122 H (74-99) mg/dL Diabetes panel 09/09/17 Range/Units 10:40 Sodium 139 (137-145) mmol/L Potassium 4.4 (3.5-5.1) mmol/L Chloride 103 (98-107) mmol/L Carbon Dioxide 27 (22-30) mmol/L BUN 8 L (9-20) mg/dL Creatinine 0.89 (0.66-1.25) mg/dL Glucose 122 H (74-99) mg/dL Calcium 9.7 (8.4-10.2) mg/dL AST 19 (17-59) U/L ALT 23 (21-72) U/L Alkaline Phosphatase 84 (38-126) U/L Total Protein 7.6 (6.3-8.2) g/dL Albumin 4.7 (3.5-5.0) g/dL Calcium panel 09/09/17 Range/Units 10:40 Calcium 9.7 (8.4-10.2) mg/dL Albumin 4.7 (3.5-5.0) g/dL Pituitary panel 09/09/17 Range/Units 10:40 Sodium 139 (137-145) mmol/L Potassium 4.4 (3.5-5.1) mmol/L Chloride 103 (98-107) mmol/L Carbon Dioxide 27 (22-30) mmol/L BUN 8 L (9-20) mg/dL Creatinine 0.89 (0.66-1.25) mg/dL Glucose 122 H (74-99) mg/dL Calcium 9.7 (8.4-10.2) mg/dL Adrenal panel 09/09/17 Range/Units 10:40 Sodium 139 (137-145) mmol/L Potassium 4.4 (3.5-5.1) mmol/L Chloride 103 (98-107) mmol/L Carbon Dioxide 27 (22-30) mmol/L BUN 8 L (9-20) mg/dL Creatinine 0.89 (0.66-1.25) mg/dL Glucose 122 H (74-99) mg/dL Calcium 9.7 (8.4-10.2) mg/dL Total Bilirubin 0.9 (0.2-1.3) mg/dL AST 19 (17-59) U/L ALT 23 (21-72) U/L Alkaline Phosphatase 84 (38-126) U/L Total Protein 7.6 (6.3-8.2) g/dL Albumin 4.7 (3.5-5.0) g/dL Assessment and Plan Assessment: Acute appendicitis. We'll perform laparoscopic appendectomy.
[2017-09-09] MEDS: HYDROmorphone 1 MG/ML 1 ML SYRINGE IVP PRN (17:00)
[2017-09-09 18:27] VITALS: BMI 22.9
[2017-09-09] MEDS: MORPHINE SULFATE 10 MG/ML SYRINGE IV PRN (18:45)
[2017-09-10] MEDS: HYDROmorphone 1 MG/ML 1 ML SYRINGE IVP PRN ×3 (01:27→11:14)
[2017-09-10] MEDS: ACETAMINOPHEN TAB 325 MG TAB PO PRN ×2 (01:31→08:00)
[2017-09-10 07:28] VITALS: BP 117/63; TEMP 98.1
[2017-09-10 07:51] LABS: Basophils # (A) 0.1 k/uL (0-0.2); Basophils % (A) 1 %; CH 30.3; CHCM 32.9; Eosinophils # (A) 0.2 k/uL (0-0.7); Eosinophils % (A) 1 %; HCT 44.9 % (39.0-53.0); HDW 2.15; HGB 14.5 gm/dL (13.0-17.5); Luc % (Auto) 1; Lymphocytes # (A) 1.5 k/uL (1.0-4.8); Lymphocytes % (A) 14 %; MCH 29.9 pg (25.0-35.0); MCHC 32.3 g/dL (31.0-37.0); MCV 92.5 fL (80.0-100.0); Mean Platelet Volume 7.4; Monocytes # (A) 0.5 k/uL (0-1.0); Monocytes % (A) 5 %; Neutrophils # (A) 8.5 k/uL (1.3-7.7); Neutrophils % (A) 79 %; RBC 4.86 m/uL (4.30-5.90); RDW 13.6 % (11.5-15.5); WBC 10.8 k/uL (3.8-10.6); WBC (Perox) 11.03
[2017-09-10 08:15] LABS: Blood Urea Nitrogen 9 mg/dL (9-20); Carbon Dioxide 26 mmol/L (22-30); Glucose 98 mg/dL (74-99); Potassium 4.4 mmol/L (3.5-5.1); Sodium 139 mmol/L (137-145)
[2017-09-10 08:16] LABS: ALT 28 U/L (21-72); AST 21 U/L (17-59); Alkaline Phosphatase 68 U/L (38-126); Anion Gap 6 mmol/L; Calcium 8.7 mg/dL (8.4-10.2); Chloride 107 mmol/L (98-107); Non-African American GFR(MDRD) >60 (>60 ml/min/1.73 sqM); Total Bilirubin 0.5 mg/dL (0.2-1.3); Total Protein 6.1 g/dL (6.3-8.2)
[2017-09-10] MEDS ORDERED: ENOXAPARIN 40 MG/0.4 ML SYRINGE SQ SCH (09:00)
[2017-09-10] MEDS: MORPHINE SULFATE 10 MG/ML SYRINGE IV PRN ×2 (09:30→12:30)
[2017-09-10 10:15] VITALS: PULSE 68
--- NOTE | 2017-09-10 12:16 | P.DS ---
Providers Date of admission: 09/09/17 13:03 Expected date of discharge: 09/10/17 Attending physician: Mono Delvalle Primary care physician: Stated None Hospital Course: This is a 36-year-old male with a 48 hour history of abdominal pain. Patient had significant right lower quadrant pain came the emergency room found have acute appendicitis on CAT scan. went for surgery laparoscopic appendectomy on sep 09 no post op events impression discharge diagnosis present on admission right lower quadrant pain suspect due to acute appendicities laparoscopic appendectomy done on sep 09 The above impression and plan of care have been discussed and directed by signing physician. Ciara Schuster nurse practitioner acting as scribe for signing physician. Patient Condition at Discharge: Fair Plan - Discharge Summary Discharge Rx Participant: No New Discharge Prescriptions: New Levofloxacin [Levaquin] 500 mg PO DAILY #7 tab HYDROcodone/APAP 5-325MG [[place] 5-325] 1 tab PO Q4HR PRN #15 tab PRN Reason: Mild Breakthrough Pain Discharge Medication List HYDROcodone/APAP 5-325MG [[place] 5-325] 1 tab PO Q4HR PRN #15 tab 09/10/17 [Rx] Levofloxacin [Levaquin] 500 mg PO DAILY #7 tab 09/10/17 [Rx] Follow up Appointment(s)/Referral(s): None,Stated [Primary Care Provider] - 1-2 days Mono Delvalle MD [STAFF PHYSICIAN] - 1 Week Activity/Diet/Wound Care/Special Instructions: no tub bath until seen by dr delvalle no lifting over 4 pounds call if fever or chills or redness at surgical sites may return to work after seen by dr delvalle may shower Discharge Disposition: HOME SELF-CARE
== END 2017-09-10 12:51 | disposition home or self-care (01) ==
LOC: EC 08:53 → 5MS5E 13:03
PROVIDERS: ADMIT Surgery; ATTEND Surgery
DX: K35.80 Unspecified acute appendicitis (principal); Z87.891 Personal history of nicotine dependence
CPT/HCPCS: 99285 ×2; 44970; 96365 ×2; 96366 ×2; 96375 ×3; 36415; 88304; 80053 ×2; 82150; 83690; 85025 ×2; 85610; 85730; 81003; 74177; G0378 ×2; J2250; J1644; J2710; J2270 ×3; J2405; J2001; J1650; J3010; J1170 ×2; J2543; Q9967; J0330; J2704

== ENCOUNTER 2019-07-02 23:55 | Emergency (ER) | payer OTHER ==
[2019-07-03 00:04] VITALS: BP 113/74; PULSE 72; RESP 18; TEMP 98.8
[2019-07-03] MEDS ORDERED: KETOROLAC 60 MG/2 ML VIAL IM STA (00:49)
[2019-07-03] MEDS ORDERED: CYCLOBENZAPRINE 10MG STARTER 3 TAB BTL PO STA (00:49)
--- NOTE | 2019-07-03 01:06 | XR ---
EXAM: XR Chest, 1 View CLINICAL HISTORY: Pain TECHNIQUE: Frontal view of the chest. COMPARISON: Chest x-ray dated 06/07/2017 FINDINGS: Lungs: Unremarkable. No consolidation. Pleural space: Unremarkable. No pneumothorax. Heart: Unremarkable. No cardiomegaly. Mediastinum: Unremarkable. Bones/joints: Unremarkable. IMPRESSION: Normal chest x-ray.
--- NOTE | 2019-07-03 01:41 | ED ---
Upper Extremity HPI - General Chief Complaint: Extremity Injury, Upper Stated Complaint: Rt Shoulder/Back Pain Time Seen by Provider: 07/03/19 00:10 Source: patient, RN notes reviewed, old records reviewed Mode of arrival: ambulatory Limitations: no limitations - History of Present Illness Initial Comments: Patient is a 38 year old male with R shoulder and chest wall, and back pain for 3 days. Symoptoms are worse with movement and stretching chest wall. 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 Patient is R handed. Denies elbow pain. Patient denies fevers, chills, chest pain, shortness of breath, nausea, vomiting, abdominal pain, dysuria, back pain, skin changes, headache, visual changes, peripheral paresthesia. He has not taken anything for pain. . - Related Data Previous Rx's Medication Instructions Recorded HYDROcodone/APAP 5-325MG [[place] 1 tab PO Q4HR PRN #15 tab 09/10/17 5-325] Levofloxacin [Levaquin] 500 mg PO DAILY #7 tab 09/10/17 Cyclobenzaprine [Flexeril] 10 mg PO TID #15 tab 07/03/19 Ibuprofen 600 mg PO TID #20 tablet 07/03/19 Allergies Allergy/AdvReac Type Severity Reaction Status Date / Time No Known Allergies Allergy Verified 07/03/19 00:04 Review of Systems ROS Statement: Those systems with pertinent positive or pertinent negative responses have been documented in the HPI. ROS Other: All systems not noted in ROS Statement are negative. Past Medical History Past Medical History: No Reported History History of Any Multi-Drug Resistant Organisms: None Reported Past Surgical History: Appendectomy Past Anesthesia/Blood Transfusion Reactions: No Reported Reaction Past Psychological History: No Psychological Hx Reported Smoking Status: Current every day smoker Past Alcohol Use History: None Reported Past Drug Use History: None Reported General Exam - General Exam Comments Initial Comments: 38 year old male, no distress. Limitations: no limitations General appearance: alert, in no apparent distress Head exam: Present: atraumatic, normocephalic, normal inspection Eye exam: Present: normal appearance ENT exam: Present: normal exam, mucous membranes moist Neck exam: Present: normal inspection. Absent: tenderness, meningismus, lymphadenopathy Respiratory exam: Present: normal lung sounds bilaterally. Absent: respiratory distress, wheezes, rales, rhonchi, stridor Cardiovascular Exam: Present: regular rate, normal rhythm, normal heart sounds. Absent: systolic murmur, diastolic murmur, rubs, gallop, clicks GI/Abdominal exam: Present: soft, normal bowel sounds. Absent: distended, tenderness, guarding, rebound, rigid Extremities exam: Present: normal inspection, full ROM, normal capillary refill, other (Tenderness over R trapezius and deltoid. Full ROM noted. Normal cap refil and sensation. Pulse intact. ). Absent: tenderness, pedal edema, joint swelling, calf tenderness Back exam: Present: normal inspection Neurological exam: Present: alert, oriented X3, CN II-XII intact Course Vital Signs 07/03/19 00:00 Temperature 98.8 F Pulse Rate 72 Respiratory 18 Rate Blood Pressure 113/74 O2 Sat by Pulse 96 Oximetry Medical Decision Making - Medical Decision Making 38 year old with right reporducible chest wall, shoulder pain and trapezius spasm. At this time patient has full rOM but with pain. No fall or trauma. 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 Given Toradol and PO floexeril. Normal CXr with normal R shoulder appearance. Dicsussed PCP follow up. - Radiology Data Radiology results: report reviewed Normal CXR noted. Disposition Clinical Impression: Shoulder strain, Strain of chest wall Disposition: HOME SELF-CARE Condition: Good Additional Instructions: Patient has a follow-up with primary care doctor. Return to the emergency department if any alarming signs or symptoms occur. Patient take the pain medicine multiple x-rays as prescribed. Prescriptions: Cyclobenzaprine [Flexeril] 10 mg PO TID #15 tab Ibuprofen 600 mg PO TID #20 tablet Is patient prescribed a controlled substance at d/c from ED?: No Referrals: Pablo Nance DO [Primary Care Provider] - 1-2 days Time of Disposition: 01:39
== END 2019-07-03 01:58 | disposition home or self-care (01) ==
LOC: EC 23:55
DX: S46.911A Strain of unspecified muscle, fascia and tendon at shoulder and upper arm level, right arm, initial encounter (principal); S29.011A Strain of muscle and tendon of front wall of thorax, initial encounter; F17.200 Nicotine dependence, unspecified, uncomplicated; Y99.9 Unspecified external cause status
CPT/HCPCS: 71046; 99284; 96372; J1885